=== PATIENT | female | born 1995 | race Hispanic/Latino ===

== ENCOUNTER 2019-09-12 08:06 | Emergency (ER) | payer OTHER, SELFPAY ==
--- NOTE | 2019-09-12 08:48 | EDPHYS ---
Physician Documentation [facility] Name: La Lincoln Age: 24 yrs Sex: Female : 1995 Arrival Date: 09/12/2019 Time: 08:09 Bed 12 Private MD: Unknown, Unknown ED Physician Ayo Navas HPI: 09/12 08:43 This 24 yrs old Female presents to ER via Ambulatory with complaints of Eye jr8 Problem. 08:43 The patient is experiencing pain, redness, tearing. Onset: The symptoms/episode jr8 began/occurred acutely, yesterday. Duration: the symptoms are continuous. Aggravated by blinking, light, Alleviated by nothing. Associated signs and symptoms: Pertinent positives: None. Patient wears glasses, wears soft contacts. Severity of symptoms: At their worst the symptoms were mild in the emergency department the symptoms are unchanged. The patient has experienced similar episodes in the past, a few times. The patient has not recently seen a physician. Denies chemical exposure, trauma, or any other symptoms . 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 - Social history:: Smoking status: Patient/guardian denies using tobacco. - Ebola Screening: : Patient denies exposure to infectious person Patient denies travel to an Ebola-affected area in the 21 days before illness onset. ROS: 08:43 ENT: Negative for injury, pain, and discharge, Neck: Negative for injury, pain, and jr8 swelling, Cardiovascular: Negative for chest pain, palpitations, and edema, Respiratory: Negative for shortness of breath, cough, wheezing, and pleuritic chest pain, Abdomen/GI: Negative for abdominal pain, nausea, vomiting, diarrhea, and constipation, Back: Negative for injury and pain, MS/Extremity: Negative for injury and deformity, Skin: Negative for injury, rash, and discoloration, Neuro: Negative for headache, weakness, numbness, tingling, and seizure. 08:43 Eyes: Positive for pain, redness, tearing, of the right eye and left eye. Exam: 08:43 ENT: Nares patent. No nasal discharge, no septal abnormalities noted. Tympanic jr8 membranes are normal and external auditory canals are clear. Oropharynx with no redness, swelling, or masses, exudates, or evidence of obstruction, uvula midline. Mucous membranes moist. Neck: Trachea midline, no thyromegaly or masses palpated, and no cervical lymphadenopathy. Supple, full range of motion without nuchal rigidity, or vertebral point tenderness. No Meningismus. Chest/axilla: Normal chest wall appearance and motion. Nontender with no deformity. No lesions are appreciated. Cardiovascular: Regular rate and rhythm with a normal S1 and S2. No gallops, murmurs, or rubs. Normal PMI, no JVD. No pulse deficits. Respiratory: Lungs have equal breath sounds bilaterally, clear to auscultation and percussion. No rales, rhonchi or wheezes noted. No increased work of breathing, no retractions or nasal flaring. Abdomen/GI: Soft, non-tender, with normal bowel sounds. No distension or tympany. No guarding or rebound. No evidence of tenderness throughout. Back: No spinal tenderness. No costovertebral tenderness. Full range of motion. Skin: Warm, dry with normal turgor. Normal color with no rashes, no lesions, and no evidence of cellulitis. MS/ Extremity: Pulses equal, no cyanosis. Neurovascular intact. Full, normal range of motion. Neuro: Awake and alert, GCS 15, oriented to person, place, time, and situation. Cranial nerves II-XII grossly intact. Motor strength 5/5 in all extremities. Sensory grossly intact. Cerebellar exam normal. Normal gait. 08:43 Eyes: Periorbital structures: appear normal, Pupils: equal, round, and reactive to light and accomodation, Extraocular movements: intact throughout, Conjunctiva: injected, bilaterally, tearing noted, bilaterally, Corneas: are normal, Sclera: no appreciated abnormality, Anterior chamber: normal, no hyphema, Lids and lashes: appear normal. Vital Signs: 08:24 BP 126 / 82; Pulse 85; Resp 16; Temp 98.1(TE); Pulse Ox 98% on R/A; Weight 90.72 kg; ss Height 5 ft. 3 in. (160.02 cm); Pain 10/10; 08:24 Body Mass Index 35.43 (90.72 kg, 160.02 cm) ss MDM: 08:29 Patient medically screened. jr8 08:43 Data reviewed: vital signs, nurses notes, and as a result, I will discharge patient. jr8 Data interpreted: Pulse oximetry: on room air is 98 %. Interpretation: normal. Counseling: I had a detailed discussion with the patient and/or guardian regarding: the historical points, exam findings, and any diagnostic results supporting the discharge/admit diagnosis, the need for outpatient follow up, an opthalmologist, to return to the emergency department if symptoms worsen or persist or if there are any questions or concerns that arise at home. ED course: Discussed with patient to not wear contacts until both eyes are cleared from infection . Administered Medications: No medications were administered Disposition: 18:16 Co-signature as Attending Physician, Ayo Navas MD Did not see or evaluate patient. ps1 Signing chart for administrative purposes. Not an endorsement of care provided. . Disposition: 09/12/19 08:47 Discharged to Home. Impression: Conjunctivitis. - Condition is Stable. - Discharge Instructions: Bacterial Conjunctivitis, Viral Conjunctivitis. - Prescriptions for Gentamicin 0.3 % Ophthalmic Drops - instill 2 drop by OPHTHALMIC route every 4 hours; 1 bottle. - Medication Reconciliation Form, Thank You Letter, Antibiotic Education, Prescription Opioid Use form. - Follow up: Bebeto Pham MD; When: 2 - 3 days; Reason: Recheck today's complaints, Continuance of care, Re-evaluation by your physician. - Problem is new. - Symptoms have improved. Signatures: Naomi Davis RN RN ss Sanjiv Diaz PA PA jr8 Ayo Navas MD MD ps1 Corrections: (The following items were deleted from the chart) 08:56 08:47 09/12/2019 08:47 Discharged to Home. Impression: Conjunctivitis. Condition is ss Stable. Forms are Medication Reconciliation Form, Thank You Letter, Antibiotic Education, Prescription Opioid Use. Follow up: Bebeto Pham; When: 2 - 3 days; Reason: Recheck today's complaints, Continuance of care, Re-evaluation by your physician. Problem is new. Symptoms have improved. jr8
--- NOTE | 2019-09-12 08:48 | ER ---
Nurse's Notes [facility] Name: La Lincoln Age: 24 yrs Sex: Female : 1995 Arrival Date: 09/12/2019 Time: 08:09 Bed 12 Private MD: Unknown, Unknown Diagnosis: Conjunctivitis Presentation: 09/12 08:25 Presenting complaint: Patient states: bilateral eye redness and burning that began ss yesterday. Woke up this morning worse, with eyes matted. Transition of care: patient was not received from another setting of care. Onset of symptoms was September 11, 2019. Risk Assessment: Do you want to hurt yourself or someone else? Patient reports no desire to harm self or others. Initial Sepsis Screen: Does the patient meet any 2 criteria? No. Patient's initial sepsis screen is negative. Does the patient have a suspected source of infection? No. Patient's initial sepsis screen is negative. Care prior to arrival: None. 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 - Social history:: Smoking status: Patient/guardian denies using tobacco. - Ebola Screening: : Patient denies exposure to infectious person Patient denies travel to an Ebola-affected area in the 21 days before illness onset. Screenin:30 Abuse screen: Denies threats or abuse. Denies injuries from another. Nutritional ss screening: No deficits noted. Tuberculosis screening: Never had TB. Fall Risk None identified. Assessment: 08:30 General: Appears uncomfortable, Behavior is calm, cooperative, Denies fever, feeling ss ill, fatigue, chills. Pain: Complains of pain in left eye and right eye Pain currently is 10 out of 10 on a pain scale. Pain began yesterday evening Is continuous. Neuro: Level of Consciousness is awake, alert, obeys commands, Oriented to person, place, time, situation. Cardiovascular: Capillary refill < 3 seconds is brisk in bilateral fingers. Respiratory: Respiratory effort is even, unlabored, Respiratory pattern is regular, symmetrical. EENT: Sclera/Cornea are reddened in outer aspect of conjuctiva of right eye, inner aspect of conjuctiva of right eye, outer aspect of conjuctiva of left eye and inner aspect of conjunctiva of left eye pt reports itching, burning and photosensitivity. Denies blurry vision . Derm: Skin is intact, is healthy with good turgor, Skin is pink, warm \T\ dry. normal. Musculoskeletal: Circulation, motion, and sensation intact. Range of motion: intact in all extremities, Swelling absent. Vital Signs: 08:24 BP 126 / 82; Pulse 85; Resp 16; Temp 98.1(TE); Pulse Ox 98% on R/A; Weight 90.72 kg; ss Height 5 ft. 3 in. (160.02 cm); Pain 10/10; 08:24 Body Mass Index 35.43 (90.72 kg, 160.02 cm) ED Course: 08:09 Patient arrived in ED. ag5 08:09 Unknown, Unknown is Private Physician. ag5 08:26 Triage completed. ss 08:27 Arm band placed on right wrist. ss 08:29 [facility]. jr8 08:29 Ayo Navas MD is Attending Physician. jr8 08:30 Patient has correct armband on for positive identification. Bed in low position. Call ss light in reach. 08:47 Bebeto Pham MD is Referral Physician. jr8 08:56 Naomi Davis RN is Primary Nurse. 08:56 No provider procedures requiring assistance completed. Patient did not have IV access ss during this emergency room visit. Administered Medications: No medications were administered Outcome: 08:47 Discharge ordered by . jr8 08:56 Discharged to home ambulatory. 08:56 Condition: good 08:56 Discharge instructions given to patient, family, Instructed on discharge instructions, follow up and referral plans. medication usage, Demonstrated understanding of instructions, follow-up care, medications, Prescriptions given X 1. 08:56 Patient left the ED. Signatures: Naomi Davis RN RN Sanjiv Diaz PA PA 8 Lili Dacosta 5
[2019-09-12 09:27] VITALS: BP 126/82; TEMP 98.1; O2SAT 98
== END 2019-09-12 08:56 | disposition home or self-care (01) ==
LOC: ER 08:06
DX: H10.9 Unspecified conjunctivitis (principal); F90.9 Attention-deficit hyperactivity disorder, unspecified type; F41.9 Anxiety disorder, unspecified
CPT/HCPCS: 99282

== ENCOUNTER 2020-06-13 14:33 | Emergency (ER) | payer SELFPAY ==
--- NOTE | 2020-06-13 16:14 | ER ---
Nurse's Notes [facility] Name: La Lincoln Age: 25 yrs Sex: Female : 1995 Arrival Date: 06/13/2020 Time: 14:35 Bed 13 Private MD: Diagnosis: Conjunctivitis-Contacts;Chemosis Presentation: 06/13 14:43 Chief complaint: Patient states: Left eye pain x 4 days, denies discharge, denies jl7 itching. Blister like appearance noted to left sclera. Coronavirus screen: Client denies travel out of the [place] in the last 14 days. At this time, the client does not indicate any symptoms associated with coronavirus-19. Ebola Screen: No symptoms or risks identified at this time. Initial Sepsis Screen: Does the patient meet any 2 criteria? No. Patient's initial sepsis screen is negative. Does the patient have a suspected source of infection? No. Patient's initial sepsis screen is negative. Risk Assessment: Do you want to hurt yourself or someone else? Patient reports no desire to harm self or others. Onset of symptoms was June 09, 2020. Care prior to arrival: None. Transition of care: patient was not received from another setting of care. 14:43 Method Of Arrival: Ambulatory jl7 14:43 Acuity: LETI 3 jl7 Triage Assessment: 14:48 General: Appears in no apparent distress. uncomfortable, Behavior is calm, cooperative, jl7 appropriate for age. Pain: Complains of pain in left eye Pain currently is 8 out of 10 on a pain scale. 14:48 EENT: Eyes are tearing on left eye Sclera/Cornea are reddened in left eye. 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 - Social history:: Smoking status: Reported history of juuling and/or vaping. Screenin:00 Abuse screen: Denies threats or abuse. Denies injuries from another. Nutritional jl7 screening: No deficits noted. Tuberculosis screening: No symptoms or risk factors identified. Fall Risk None identified. Assessment: 16:44 Reassessment: Patient appears in no apparent distress at this time. No changes from jl7 previously documented assessment. Vital Signs: 14:43 BP 115 / 75; Pulse 84; Resp 17; Temp 98.1; Pulse Ox 96% ; Pain 8/10; jl7 ED Course: 14:35 Patient arrived in ED. as 14:48 Triage completed. jl7 14:48 Arm band placed on right wrist. jl7 14:49 Patient placed in waiting room, Patient notified of wait time. jl7 15:27 Sidra Keys FNP-C is [facility]. snw 15:27 Cody العلي MD is Attending Physician. snw 15:59 Laura Conley, RN is Primary Nurse. ca1 16:00 Patient has correct armband on for positive identification. Bed in low position. Call jl7 light in reach. Side rails up X 1. 16:45 No provider procedures requiring assistance completed. Patient did not have IV access jl7 during this emergency room visit. Administered Medications: 16:40 Drug: UltRAM 25 mg Route: PO; jl7 16:46 Follow up: Response: Medication administered at discharge. jl7 Outcome: 16:14 Discharge ordered by . snw 16:45 Discharged to home ambulatory. jl7 16:45 Condition: stable 16:45 Discharge instructions given to patient, Instructed on discharge instructions, follow up and referral plans. medication usage, Demonstrated understanding of instructions, follow-up care, medications, Prescriptions given X 1. 16:46 Patient left the ED. jl7 Signatures: Sidra Keys FNP-C FNP-Viola Hansen Jahala, RN RN jl7 Laura Conley, MONROE RN ca1
--- NOTE | 2020-06-13 16:14 | EDPHYS ---
Physician Documentation [facility] Name: La Lincoln Age: 25 yrs Sex: Female : 1995 Arrival Date: 06/13/2020 Time: 14:35 Bed 13 Private MD: ED Physician Cody العلي HPI: 06/13 16:32 This 25 yrs old Female presents to ER via Ambulatory with complaints of snw Redness of Eye, Drainage From Eye. 16:32 The patient is experiencing redness, tearing, The patient sustained None. to the left snw eye, caused by contact lens. Onset: The symptoms/episode began/occurred suddenly, 2 day(s) ago, and improved then became worse again yesterday, noted "bubble" on eye. Duration: the symptoms are continuous. Aggravated by pressure. Associated signs and symptoms: Pertinent positives:. Severity of symptoms: At their worst the symptoms were moderate in the emergency department the symptoms are unchanged. The patient has not experienced similar symptoms in the past. It is unknown whether or not the patient has recently seen a physician. 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 - Social history:: Smoking status: Reported history of juuling and/or vaping. ROS: 16:30 Constitutional: Negative for fever, chills, and weight loss, ENT: Negative for injury, snw pain, and discharge, Neck: Negative for injury, pain, and swelling, Cardiovascular: Negative for chest pain, palpitations, and edema, Respiratory: Negative for shortness of breath, cough, wheezing, and pleuritic chest pain, Abdomen/GI: Negative for abdominal pain, nausea, vomiting, diarrhea, and constipation, Back: Negative for injury and pain, : Negative for injury, bleeding, discharge, and swelling, MS/Extremity: Negative for injury and deformity, Skin: Negative for injury, rash, and discoloration, Neuro: Negative for headache, weakness, numbness, tingling, and seizure, Psych: Negative for depression, anxiety, suicide ideation, homicidal ideation, and hallucinations. 16:30 Eyes: Positive for pain, swelling, tearing, of the outer aspect of conjuctiva of left eye, wears contact lenses. Exam: 16:29 Constitutional: This is a well developed, well nourished patient who is awake, alert, snw and in no acute distress. Head/Face: Normocephalic, atraumatic. ENT: Nares patent. No nasal discharge, no septal abnormalities noted. Tympanic membranes are normal and external auditory canals are clear. Oropharynx with no redness, swelling, or masses, exudates, or evidence of obstruction, uvula midline. Mucous membranes moist. Neck: Trachea midline, no thyromegaly or masses palpated, and no cervical lymphadenopathy. Supple, full range of motion without nuchal rigidity, or vertebral point tenderness. No Meningismus. Chest/axilla: Normal chest wall appearance and motion. Nontender with no deformity. No lesions are appreciated. Cardiovascular: Regular rate and rhythm with a normal S1 and S2. No gallops, murmurs, or rubs. Normal PMI, no JVD. No pulse deficits. Respiratory: Lungs have equal breath sounds bilaterally, clear to auscultation and percussion. No rales, rhonchi or wheezes noted. No increased work of breathing, no retractions or nasal flaring. Abdomen/GI: Soft, non-tender, with normal bowel sounds. No distension or tympany. No guarding or rebound. No evidence of tenderness throughout. Back: No spinal tenderness. No costovertebral tenderness. Full range of motion. Skin: Warm, dry with normal turgor. Normal color with no rashes, no lesions, and no evidence of cellulitis. MS/ Extremity: Pulses equal, no cyanosis. Neurovascular intact. Full, normal range of motion. Neuro: Awake and alert, GCS 15, oriented to person, place, time, and situation. Cranial nerves II-XII grossly intact. Motor strength 5/5 in all extremities. Sensory grossly intact. Cerebellar exam normal. Normal gait. Psych: Awake, alert, with orientation to person, place and time. Behavior, mood, and affect are within normal limits. 16:29 Eyes: Periorbital structures: swelling, that is mild, on the left lower eyelid, Pupils: no acute changes, Extraocular movements: intact throughout, Conjunctiva: chemosis, that is mild, in left eye, at 3 o'clock, injected, in the left eye, Corneas: are normal, Sclera: no appreciated abnormality, Lids and lashes: appear normal. Vital Signs: 14:43 BP 115 / 75; Pulse 84; Resp 17; Temp 98.1; Pulse Ox 96% ; Pain 8/10; jl7 MDM: 16:06 Patient medically screened. snw 16:31 Data reviewed: vital signs, nurses notes. Data interpreted: Pulse oximetry: on room air snw is 96 %. Interpretation: acceptable. Counseling: I had a detailed discussion with the patient and/or guardian regarding: the historical points, exam findings, and any diagnostic results supporting the discharge/admit diagnosis, the need for outpatient follow up, for definitive care, to return to the emergency department if symptoms worsen or persist or if there are any questions or concerns that arise at home. Special discussion: Based on the history and exam findings, there is no indication for further emergent testing or inpatient evaluation. I discussed with the patient/guardian the need to see the opthamologist for further evaluation of the symptoms. Administered Medications: 16:40 Drug: UltRAM 25 mg Route: PO; jl7 16:46 Follow up: Response: Medication administered at discharge. jl7 Disposition: 16:51 Co-signature as Attending Physician, Cody العلي MD. rn Disposition: 06/13/20 16:14 Discharged to Home. Impression: Conjunctivitis - Contacts, Chemosis. - Condition is Stable. - Discharge Instructions: Bacterial Conjunctivitis, Viral Conjunctivitis, Hand Washing. - Prescriptions for Vigamox 0.5 % Ophthalmic Drops - instill 1 drop by OPHTHALMIC route every 8 hours for 7 days; 5 milliliter. - Medication Reconciliation Form, Thank You Letter, Antibiotic Education, Prescription Opioid Use, Work release form form. - Follow up: Emergency Department; When: As needed; Reason: Worsening of condition. Follow up: Private Physician; When: 1 - 2 days; Reason: Worsening of condition, Recheck today's complaints. Signatures: Sidra Keys, PLASTIC ROLLER-C PLASTIC ROLLER-Csnw Cody العلي MD MD rn Leal, Jahala, RN RN jl7 Corrections: (The following items were deleted from the chart) 16:46 16:14 06/13/2020 16:14 Discharged to Home. Impression: Conjunctivitis - Contacts; jl7 Chemosis. Condition is Stable. Forms are Medication Reconciliation Form, Thank You Letter, Antibiotic Education, Prescription Opioid Use. Follow up: Emergency Department; When: As needed; Reason: Worsening of condition. Follow up: Private Physician; When: 1 - 2 days; Reason: Worsening of condition, Recheck today's complaints. snw
[2020-06-13] MEDS ORDERED: TRAMADOL HCL 50 MG TAB ONE (16:50)
[2020-06-18 12:43] VITALS: BP 115/75; TEMP 98.1; O2SAT 96
== END 2020-06-13 16:46 | disposition home or self-care (01) ==
LOC: ER 14:33
DX: H10.9 Unspecified conjunctivitis (principal); H11.422 Conjunctival edema, left eye; Z87.891 Personal history of nicotine dependence
CPT/HCPCS: 99283

== ENCOUNTER 2021-01-25 13:21 | Emergency (ER) | payer SELFPAY ==
--- OUTSIDE RECORDS SUMMARY | 2021-01-25 13:24 | XMS REPORT | Continuity of Care Document ---
:1995 Author Organization [facility] t Address [address] [place] [address] Dr. Bee [address] [place] [id number] Care Team Providers Name Role Phone Unavailable Unavailable Unavailable Problems This patient has no known problems. Allergies, Adverse Reactions, Alerts This patient has no known allergies or adverse reactions. Medications This patient has no known medications. Procedures This patient has no known procedures. Results This patient has no known results.
--- NOTE | 2021-01-25 14:56 | ER ---
Nurse's Notes [facility] Name: La Lincoln Age: 25 yrs Sex: Female : 1995 Arrival Date: 01/25/2021 Time: 13:24 Bed 12 Private MD: Diagnosis: Rash and other nonspecific skin eruption Presentation: 01/25 13:47 Chief complaint: Patient states: itchy rash to body that started 3 days ago. ss Coronavirus screen: Client denies travel out of the [place] in the last 14 days. Ebola Screen: Patient denies exposure to infectious person. Patient denies travel to an Ebola-affected area in the 21 days before illness onset. Initial Sepsis Screen: Does the patient meet any 2 criteria? No. Patient's initial sepsis screen is negative. Does the patient have a suspected source of infection? No. Patient's initial sepsis screen is negative. Risk Assessment: Do you want to hurt yourself or someone else? Patient reports no desire to harm self or others. Onset of symptoms was January 22, 2021. 13:47 Method Of Arrival: Ambulatory ss 13:47 Acuity: LETI 5 ss Historical: - Allergies: 13:49 No Known Allergies; ss - Home Meds: 13:49 Adderall XR Oral [Active]; ss - PMHx: 13:49 ADD/ADHD; Anxiety; ss - PSHx: 13:49 None; ss - Immunization history:: Adult Immunizations up to date. - Social history:: Smoking status: Patient denies any tobacco usage or history of. Screenin:47 Abuse screen: Denies threats or abuse. Denies injuries from another. Nutritional ss screening: No deficits noted. Tuberculosis screening: Never had TB. Fall Risk None identified. Assessment: 13:47 General: Appears in no apparent distress. comfortable, Behavior is calm, cooperative, ss Denies fever, feeling ill, fatigue, chills. Pain: Denies pain. Neuro: Level of Consciousness is awake, alert, obeys commands, Oriented to person, place, time, situation. Cardiovascular: Capillary refill < 3 seconds is brisk in bilateral fingers. Respiratory: Airway is patent Respiratory effort is even, unlabored, Respiratory pattern is regular, symmetrical. EENT: Oral mucosa is moist. Derm: Skin is intact, is healthy with good turgor, Skin is dry, Skin is pink, warm \T\ dry. normal. Derm: Derm: Rash noted that is on right leg and left leg small red areas noted to bilateral legs. Not whelps. Musculoskeletal: Circulation, motion, and sensation intact. Range of motion: intact in all extremities, Swelling absent. 15:00 Reassessment: Patient appears in no apparent distress at this time. Patient and/or ss family updated on plan of care and expected duration. Pain level reassessed. Patient denies pain at this time. Patient states feeling better. Patient states symptoms have improved. Respiratory: Respiratory effort is even, unlabored, Respiratory pattern is regular, symmetrical. Derm: Skin is pink, warm \T\ dry. normal, rash seems to have improved. less splotches noted to bilateral legs. Areas seem to be less irritated, are pink. Vital Signs: 13:49 BP 114 / 76; Pulse 100; Resp 14; Temp 98.0; Pulse Ox 99% on R/A; Weight 88.45 kg; ss Height 5 ft. 2 in. (157.48 cm); Pain 0/10; 13:49 Body Mass Index 35.67 (88.45 kg, 157.48 cm) ED Course: 13:24 Patient arrived in ED. ds1 13:47 Patient has correct armband on for positive identification. Bed in low position. Call ss light in reach. 13:49 Triage completed. ss 13:49 Arm band placed on right wrist. ss 14:47 [facility]phanie [facility]C [facility] kb 14:47 Ankur Bella MD is Attending Physician. kb 15:07 Naomi Davis RN is Primary Nurse. ss 15:08 No provider procedures requiring assistance completed. Patient did not have IV access ss during this emergency room visit. Administered Medications: 15:07 Drug: predniSONE 40 mg Route: PO; ss 15:07 Follow up: Response: Medication administered at discharge. ss 15:07 Drug: Pepcid (famotidine) 20 mg Route: PO; ss 15:08 Follow up: Response: Medication administered at discharge. Outcome: 14:56 Discharge ordered by . kb 15:08 Discharged to home ambulatory. ss 15:08 Condition: good 15:08 Discharge instructions given to patient, Instructed on discharge instructions, follow up and referral plans. medication usage, Demonstrated understanding of instructions, follow-up care, medications, Prescriptions given X 2. 15:09 Patient left the ED. ss Signatures: Estephanie Clarke, MYRNAC RN LPN CNA-Janine Steward ds1 Naomi Davis, RN RN ss
--- NOTE | 2021-01-25 14:56 | EDPHYS ---
Physician Documentation [facility] Name: La Lincoln Age: 25 yrs Sex: Female : 1995 Arrival Date: 01/25/2021 Time: 13:24 Bed 12 Private MD: ED Physician Ankur Bella HPI: 01/25 15:06 This 25 yrs old Female presents to ER via Ambulatory with complaints of Rash. kb 15:06 The patient's rash thought to be caused by an unknown cause. The rash is located on the kb right arm, left arm, right leg and left leg. The rash can be described as papular. Onset: The symptoms/episode began/occurred 3 day(s) ago. Associated signs and symptoms: Pertinent positives: itching. Severity of symptoms: At their worst the symptoms were moderate in the emergency department the symptoms are unchanged. Treatment given at home: OTC lotion/cream. The patient has not experienced similar symptoms in the past. The patient has not recently seen a physician. Historical: - Allergies: 13:49 No Known Allergies; ss - Home Meds: 13:49 Adderall XR Oral [Active]; ss - PMHx: 13:49 ADD/ADHD; Anxiety; ss - PSHx: 13:49 None; ss - Immunization history:: Adult Immunizations up to date. - Social history:: Smoking status: Patient denies any tobacco usage or history of. ROS: 15:03 Constitutional: Negative for fever, chills, and weight loss, Respiratory: Negative for kb shortness of breath, cough, wheezing, and pleuritic chest pain, MS/Extremity: Negative for injury and deformity, Neuro: Negative for headache, weakness, numbness, tingling, and seizure. 15:03 Skin: Positive for rash, of the right arm, left arm, right leg and left leg. Exam: 15:05 Constitutional: This is a well developed, well nourished patient who is awake, alert, kb and in no acute distress. Head/Face: Normocephalic, atraumatic. MS/ Extremity: Pulses equal, no cyanosis. Neurovascular intact. Full, normal range of motion. Neuro: Awake and alert, GCS 15, oriented to person, place, time, and situation. Moves all extremities. Normal gait. 15:05 Skin: rash can be described as papular, on the right arm, left arm, right leg and left leg. Vital Signs: 13:49 BP 114 / 76; Pulse 100; Resp 14; Temp 98.0; Pulse Ox 99% on R/A; Weight 88.45 kg; ss Height 5 ft. 2 in. (157.48 cm); Pain 0/10; 13:49 Body Mass Index 35.67 (88.45 kg, 157.48 cm) MDM: 14:48 Patient medically screened. kb 15:03 Data reviewed: vital signs, nurses notes. Data interpreted: Pulse oximetry: on room air kb is 99 %. Interpretation: normal. Counseling: I had a detailed discussion with the patient and/or guardian regarding: the historical points, exam findings, and any diagnostic results supporting the discharge/admit diagnosis, the need for outpatient follow up, a family practitioner, to return to the emergency department if symptoms worsen or persist or if there are any questions or concerns that arise at home. Administered Medications: 15:07 Drug: predniSONE 40 mg Route: PO; 15:07 Follow up: Response: Medication administered at discharge. ss 15:07 Drug: Pepcid (famotidine) 20 mg Route: PO; ss 15:08 Follow up: Response: Medication administered at discharge. Disposition: 01/26 07:31 Co-signature as Attending Physician, Ankur Bella MD I agree with the assessment and markie plan of care. Disposition: 01/25/21 14:56 Discharged to Home. Impression: Rash and other nonspecific skin eruption. - Condition is Stable. - Discharge Instructions: Rash, [id number]. - Prescriptions for Pepcid 20 mg Oral Tablet - take 1 tablet by ORAL route every 12 hours for 5 days; 10 tablet. Prednisone 20 mg Oral Tablet - take 1 tablet by ORAL route once daily for 5 days; 5 tablet. - Medication Reconciliation Form, Thank You Letter, Antibiotic Education, Prescription Opioid Use form. - Follow up: Emergency Department; When: As needed; Reason: Worsening of condition. Follow up: Private Physician; When: 2 - 3 days; Reason: Recheck today's complaints, Continuance of care, Re-evaluation by your physician. Signatures: Estephanie Clarke, JAYCEE GARZA-Ckb Shayne, Ankur, MD MD markie Smirch, Naomi, RN RN ss Corrections: (The following items were deleted from the chart) 01/25 15:09 14:56 01/25/2021 14:56 Discharged to Home. Impression: Rash and other nonspecific skin ss eruption. Condition is Stable. Forms are Medication Reconciliation Form, Thank You Letter, Antibiotic Education, Prescription Opioid Use. Follow up: Emergency Department; When: As needed; Reason: Worsening of condition. Follow up: Private Physician; When: 2 - 3 days; Reason: Recheck today's complaints, Continuance of care, Re-evaluation by your physician. kb
[2021-01-25] MEDS ORDERED: FAMOTIDINE 20 MG TAB ONE (15:22)
[2021-01-25] MEDS ORDERED: predniSONE 20 MG TAB ONE (15:23)
[2021-01-25 17:02] VITALS: BP 114/76; TEMP 98; O2SAT 99
== END 2021-01-25 15:09 | disposition home or self-care (01) ==
LOC: ER 13:21
DX: R21 Rash and other nonspecific skin eruption (principal); F90.9 Attention-deficit hyperactivity disorder, unspecified type
CPT/HCPCS: 99283; J7512

== ENCOUNTER 2021-03-26 12:40 | Emergency (ER) | payer SELFPAY ==
--- OUTSIDE RECORDS SUMMARY | 2021-03-26 12:45 | XMS REPORT | Continuity of Care Document ---
:1995 Author Organization [facility] t Address [address] [place] [address] Care Team Providers Name Role Phone Di Cates Attending Clinician Problems This patient has no known problems. Allergies, Adverse Reactions, Alerts This patient has no known allergies or adverse reactions. Medications This patient has no known medications. Procedures This patient has no known procedures. 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
[2021-03-26 13:27] LABS: Urine Blood 2+ (Negative); Urine Glucose Negative (Negative); Urine Protein Negative (Negative)
[2021-03-26 13:56] LABS: Urine Bacteria 20-50 /HPF (<20); Urine RBC <5 /HPF (NONE SEEN)
[2021-03-26 13:57] LABS: Urine Mucus LIGHT /HPF (NONE SEEN)
--- NOTE | 2021-03-26 14:46 | EDPHYS ---
Physician Documentation [facility] Name: La Lincoln Age: 25 yrs Sex: Female : 1995 Arrival Date: 03/26/2021 Time: 12:46 Bed 17 Private MD: out of town, doctor ED Physician Cody العلي HPI: 03/26 13:17 This 25 yrs old Female presents to ER via Ambulatory with complaints of kb Weakness, DEHYDRATION. 13:17 The patient or guardian reports flu symptoms, arthralgias, myalgias. Onset: The kb symptoms/episode began/occurred 3 day(s) ago. Severity of symptoms: At their worst the symptoms were mild, in the emergency department the symptoms are unchanged. Modifying factors: The symptoms are alleviated by nothing, the symptoms are aggravated by nothing. Associated signs and symptoms: The patient has no apparent associated signs or symptoms. The patient has not experienced similar symptoms in the past. The patient has not recently seen a physician. Pt reports bodyaches, fatigue and malaise for 3 days. Denies fever or any other symptoms. States she wanted to see if she was dehydrated or possibly had covid. 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 - Social history:: Smoking status: Patient denies any tobacco usage or history of. ROS: 13:14 Respiratory: Negative for shortness of breath, cough, wheezing, and pleuritic chest kb pain, Abdomen/GI: Negative for abdominal pain, nausea, vomiting, diarrhea, and constipation. 13:14 Constitutional: Positive for body aches, fatigue, malaise. 13:14 All other systems are negative. Exam: 13:14 Constitutional: This is a well developed, well nourished patient who is awake, alert, kb and in no acute distress. Head/Face: Normocephalic, atraumatic. ENT: Moist Mucous membranes Cardiovascular: Regular rate and rhythm with a normal S1 and S2. No gallops, murmurs, or rubs. No pulse deficits. Respiratory: Respirations even and unlabored. No increased work of breathing, no retractions or nasal flaring. Abdomen/GI: Soft, non-tender. No distention Skin: Warm, dry with normal turgor. Normal color. MS/ Extremity: Pulses equal, no cyanosis. Neurovascular intact. Full, normal range of motion. Neuro: Awake and alert, GCS 15, oriented to person, place, time, and situation. Moves all extremities. Normal gait. Psych: Awake, alert, with orientation to person, place and time. Behavior, mood, and affect are within normal limits. Vital Signs: 13:00 BP 116 / 73; Pulse 93; Resp 18; Temp 98.2; Pulse Ox 99% on R/A; Weight 89.81 kg; Height ph 5 ft. 2 in. (157.48 cm); 14:53 BP 120 / 82; Pulse 74; Resp 17 S; Pulse Ox 99% on R/A; jd3 13:00 Body Mass Index 36.21 (89.81 kg, 157.48 cm) ph MDM: 13:03 Patient medically screened. kb 13:17 Data reviewed: vital signs, nurses notes. Data interpreted: Pulse oximetry: on room air kb is 99 %. Interpretation: normal. 14:45 Counseling: I had a detailed discussion with the patient and/or guardian regarding: the kb historical points, exam findings, and any diagnostic results supporting the discharge/admit diagnosis, lab results, the need for outpatient follow up, a family practitioner, to return to the emergency department if symptoms worsen or persist or if there are any questions or concerns that arise at home. 03/26 13:08 Order name: [place] Screen Profile; Complete Time: 13:59 kb 03/26 13:27 Order name: Urine Dipstick-Ancillary; Complete Time: 13:40 EDMS 03/26 13:33 Order name: Urine --Ancillary (enter results); Complete Time: 13:46 bd 03/26 13:40 Order name: Urine Microscopic Only; Complete Time: 13:59 kb 03/26 14:41 Order name: SARS-COV-2 RT PCR; Complete Time: 14:43 EDMS 03/26 13:08 Order name: Urine Dipstick-Ancillary (obtain specimen); Complete Time: 13:28 kb Administered Medications: No medications were administered Disposition: 17:31 Co-signature as Attending Physician, Cody العلي MD. rn Disposition: 03/26/21 14:46 Discharged to Home. Impression: Malaise and fatigue. - Condition is Stable. - Discharge Instructions: Fatigue. - Medication Reconciliation Form, Thank You Letter, Antibiotic Education, Prescription Opioid Use form. - Follow up: Emergency Department; When: As needed; Reason: Worsening of condition. Follow up: Private Physician; When: 2 - 3 days; Reason: Recheck today's complaints, Continuance of care, Re-evaluation by your physician. Signatures: Dispatcher [employer] EDND Estephanie Clarke, CLASSIFIED AD CLERK-C CLASSIFIED AD CLERK-Ckb Cody العلي MD MD rn Hall, Patricia, RN RN Primo Patterson RN RN jd3 Corrections: (The following items were deleted from the chart) 13:49 13:08 CORONAVIRUS+MR.LAB.BRZ ordered. [facility] 14:53 14:46 03/26/2021 14:46 Discharged to Home. Impression: Malaise and fatigue. Condition jd3 is Stable. Forms are Medication Reconciliation Form, Thank You Letter, Antibiotic Education, Prescription Opioid Use. Follow up: Emergency Department; When: As needed; Reason: Worsening of condition. Follow up: Private Physician; When: 2 - 3 days; Reason: Recheck today's complaints, Continuance of care, Re-evaluation by your physician. kb
--- NOTE | 2021-03-26 14:46 | ER ---
Nurse's Notes [facility] Name: La Lincoln Age: 25 yrs Sex: Female : 1995 Arrival Date: 03/26/2021 Time: 12:46 Bed 17 Private MD: out of town, doctor Diagnosis: Malaise and fatigue Presentation: 03/26 13:00 Chief complaint: Patient states: Fatigue and body aches since Thursday, denies fever, ph cough, N/V/D. Coronavirus screen: fatigue, muscle pain, Client presents with at least one sign or symptom that may indicate coronavirus-19. Standard/surgical mask placed on the client. Ebola Screen: No symptoms or risks identified at this time. Initial Sepsis Screen: Does the patient meet any 2 criteria? No. Patient's initial sepsis screen is negative. Does the patient have a suspected source of infection? No. Patient's initial sepsis screen is negative. Risk Assessment: Do you want to hurt yourself or someone else? Patient reports no desire to harm self or others. Onset of symptoms was March 26, 2021. 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 - Social history:: Smoking status: Patient denies any tobacco usage or history of. Screenin:20 Abuse screen: Denies threats or abuse. Nutritional screening: No deficits noted. jd3 Tuberculosis screening: No symptoms or risk factors identified. Fall Risk Ambulatory Aid- None/Bed Rest/Nurse Assist (0 pts). Gait- Normal/Bed Rest/Wheelchair (0 pts) Mental Status- Oriented to own ability (0 pts). Total Uribe Fall Scale indicates No Risk (0-24 pts). Assessment: 13:10 General: Appears in no apparent distress. comfortable, Behavior is calm, cooperative, jd3 appropriate for age, Reports feeling ill for 1-2 days, fatigue for 1-2 days. Pain: Denies pain. Neuro: Level of Consciousness is awake, alert, obeys commands, Oriented to person, place, time, situation. Cardiovascular: Denies chest pain, Capillary refill < 3 seconds Patient's skin is warm and dry. Respiratory: Airway is patent Respiratory effort is even, unlabored, Respiratory pattern is regular, symmetrical, Denies shortness of breath. GI: No signs and/or symptoms were reported involving the gastrointestinal system. Reports tolerance of fluids. : No signs and/or symptoms were reported regarding the genitourinary system. EENT: No signs and/or symptoms were reported regarding the EENT system. Derm: Skin is intact, Skin is dry, Skin is normal, Skin temperature is warm. Musculoskeletal: Circulation, motion, and sensation intact. Range of motion: intact in all extremities. 14:18 Reassessment: Patient appears in no apparent distress at this time. No changes from jd3 previously documented assessment. Patient and/or family updated on plan of care and expected duration. Pain level reassessed. Patient is alert, oriented x 3, equal unlabored respirations, skin warm/dry/pink. 14:52 Reassessment: Patient appears in no apparent distress at this time. Patient and/or jd3 family updated on plan of care and expected duration. Pain level reassessed. Patient is alert, oriented x 3, equal unlabored respirations, skin warm/dry/pink. Vital Signs: 13:00 BP 116 / 73; Pulse 93; Resp 18; Temp 98.2; Pulse Ox 99% on R/A; Weight 89.81 kg; Height ph 5 ft. 2 in. (157.48 cm); 14:53 BP 120 / 82; Pulse 74; Resp 17 S; Pulse Ox 99% on R/A; jd3 13:00 Body Mass Index 36.21 (89.81 kg, 157.48 cm) ph ED Course: 12:46 Patient arrived in ED. hh 12:46 out of town, doctor is Private Physician. hh 13:00 Estephanie Clarke FNP-C is PHCP. kb 13:00 Cody العلي MD is Attending Physician. kb 13:02 Triage completed. ph 13:03 Arm band placed on Patient placed in an exam room. ph 13:09 Primo Youngblood RN is Primary Nurse. jd3 13:21 [place] Screen Profile Sent. jd3 13:21 Initial lab(s) drawn, by me, sent to lab. COVID swab sent to lab. jd3 14:20 Patient has correct armband on for positive identification. Bed in low position. Call jcarlene light in reach. Side rails up X 1. Pulse ox on. NIBP on. 14:53 No provider procedures requiring assistance completed. Patient did not have IV access j during this emergency room visit. Administered Medications: No medications were administered Outcome: 14:46 Discharge ordered by . rico 14:53 Discharged to home ambulatory, with family. jd3 14:53 Condition: stable 14:53 Discharge instructions given to patient, Instructed on discharge instructions, follow up and referral plans. Demonstrated understanding of instructions, follow-up care. 14:53 Patient left the ED. jd3 Signatures: Estephanie Clarke, PIPELINE DISPATCH OPERATOR-C PIPELINE DISPATCH OPERATOR-Bhavani Marques RN RN Primo Patterson RN RN Christa Bee
[2021-03-26 15:39] VITALS: TEMP 98.2; O2SAT 99
[2021-03-26 15:40] VITALS: BP 120/82
== END 2021-03-26 14:53 | disposition home or self-care (01) ==
LOC: ER 12:40
DX: R53.81 Other malaise (principal); R53.83 Other fatigue; Z20.822 Contact with and (suspected) exposure to COVID-19; F90.9 Attention-deficit hyperactivity disorder, unspecified type
CPT/HCPCS: 36415; 81003; 81015; 81025; 86308; 99283; U0003

== ENCOUNTER 2021-05-09 22:11 | Emergency (ER) | payer SELFPAY ==
--- OUTSIDE RECORDS SUMMARY | 2021-05-09 22:13 | XMS REPORT | Continuity of Care Document ---
:1995 Author Organization [facility] t Address 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
[2021-05-09 23:55] LABS: Basophils % 0.6 % (0-1.3); Hematocrit 29.1 % (36.0-45.0); Lymphocytes % 24.9 % (15.3-44.8); RBC Red Blood Cell Count 3.53 M/uL (3.86-4.86)
[2021-05-10 00:07] LABS: BUN Blood Urea Nitrogen 12 mg/dL (7-18); Bicarbonate 25 mmol/L (21-32); Glucose Level 87 mg/dL (74-106); Potassium 3.4 mmol/L (3.5-5.1); Sodium Level 140 mmol/L (136-145)
--- NOTE | 2021-05-10 02:18 | EDPHYS ---
Physician Documentation [facility] Name: La Lincoln Age: 25 yrs Sex: Female : 1995 Arrival Date: 05/09/2021 Time: 22:37 Bed 6 Private MD: ED Physician Estevan Doan HPI: 05/09 23:33 This 25 yrs old Female presents to ER via Ambulatory with complaints of Feet pkl Swelling. 23:33 The patient presents with swelling. The complaints affect the both feet. Onset: The pkl symptoms/episode began/occurred left foot started swelling 1 week ago and right foot started swelling today. 05/10 02:12 Associated signs and symptoms: The patient has no apparent associated signs or symptoms.pkl Historical: - Allergies: 05/09 23:00 No Known Allergies; bs2 - Home Meds: 23:00 None [Active]; bs2 - PMHx: 23:00 ADD/ADHD; bs2 - PSHx: 23:00 None; bs2 - Immunization history:: Client reports having NOT received the Covid vaccine. Flu vaccine is not up to date. It has been more than one year since last vaccine. - Social history:: Smoking status: Patient denies any tobacco usage or history of. ROS: 05/10 02:12 Eyes: Negative for injury, pain, redness, and discharge, ENT: Negative for injury, pkl pain, and discharge, Neck: Negative for injury, pain, and swelling, Cardiovascular: Negative for chest pain, palpitations, and edema, Respiratory: Negative for shortness of breath, cough, wheezing, and pleuritic chest pain, Abdomen/GI: Negative for abdominal pain, nausea, vomiting, diarrhea, and constipation, Back: Negative for injury and pain, : Negative for injury, bleeding, discharge, and swelling. MS/extremity: Positive for swelling, of the both feet. Skin: Negative for rash. Neuro: Negative for altered mental status, loss of consciousness. Exam: 02:12 Head/Face: Normocephalic, atraumatic. Eyes: Pupils equal round and reactive to light, pkl extra-ocular motions intact. Lids and lashes normal. Conjunctiva and sclera are non-icteric and not injected. Cornea within normal limits. Periorbital areas with no swelling, redness, or edema. ENT: Nares patent. No nasal discharge, no septal abnormalities noted. Tympanic membranes are normal and external auditory canals are clear. Oropharynx with no redness, swelling, or masses, exudates, or evidence of obstruction, uvula midline. Mucous membranes moist. Neck: Trachea midline, no thyromegaly or masses palpated, and no cervical lymphadenopathy. Supple, full range of motion without nuchal rigidity, or vertebral point tenderness. No Meningismus. Chest/axilla: Normal chest wall appearance and motion. Nontender with no deformity. No lesions are appreciated. Cardiovascular: Regular rate and rhythm with a normal S1 and S2. No gallops, murmurs, or rubs. Normal PMI, no JVD. No pulse deficits. Respiratory: Lungs have equal breath sounds bilaterally, clear to auscultation and percussion. No rales, rhonchi or wheezes noted. No increased work of breathing, no retractions or nasal flaring. Abdomen/GI: Soft, non-tender, with normal bowel sounds. No distension or tympany. No guarding or rebound. No evidence of tenderness throughout. Back: No spinal tenderness. No costovertebral tenderness. Full range of motion. Skin: Warm, dry with normal turgor. Normal color with no rashes, no lesions, and no evidence of cellulitis. Neuro: Awake and alert, GCS 15, oriented to person, place, time, and situation. Cranial nerves II-XII grossly intact. Motor strength 5/5 in all extremities. Sensory grossly intact. Cerebellar exam normal. Normal gait. 02:12 Musculoskeletal/extremity: Extremities: grossly normal except: noted in the both feet: swelling. Vital Signs: 05/09 22:57 BP 109 / 78 RA Sitting (auto/lg); Pulse 84 MON; Resp 20 S; Temp 98.6(TE); Pulse Ox 100% bs2 ; Weight 86.18 kg (R); Height 5 ft. 3 in. (160.02 cm); Pain 07/28; 05/10 01:43 BP 101 / 69; Pulse 84; Resp 19; Pulse Ox 99% on R/A; ea 02:29 BP 112 / 68; Pulse 75; Resp 16; Pulse Ox 99% on R/A; em 05/09 22:57 Body Mass Index 33.66 (86.18 kg, 160.02 cm) bs2 MDM: 05/09 23:25 Patient medically screened. pkl 05/10 02:12 Data reviewed: vital signs, nurses notes. ED course: Discussed lab results with pkl patient. Advised to follow up with PCP in 2 to 3 days for further evaluations. Patient understood instructions. 05/09 23:32 Order name: CBC with Diff; Complete Time: 02:09 pkl 05/09 23:32 Order name: Chem 7; Complete Time: 02:09 pkl 05/09 23:32 Order name: Sed Rate; Complete Time: 02:09 pkl 05/09 23:32 Order name: CRP; Complete Time: 02:09 pkl 05/09 23:32 Order name: D-Dimer; Complete Time: 02:09 pkl Administered Medications: 02:24 Drug: K-Dur (potassium chloride) 40 mEq Route: PO; em 02:29 Follow up: Response: Medication administered at discharge. em Disposition Summary: 05/10/21 02:17 Discharge Ordered Location: Home pkl Problem: new pkl Symptoms: are unchanged pkl Condition: Stable pkl Diagnosis - Swelling both feet pkl Followup: pkl - With: Private Physician - When: 2 - 3 days - Reason: Re-evaluation by your physician Discharge Instructions: - Discharge Summary Sheet pkl Forms: - Medication Reconciliation Form pkl - Thank You Letter pkl - Antibiotic Education pkl - Prescription Opioid Use pkl Prescriptions: - Lasix 40 mg Oral Tablet - take 1 tablet by ORAL route once daily for 7 days; 7 tablet; Refills: 0, pkl Product Selection Permitted - Potassium Chloride 10 mEq Oral capsule, extended release - take 1 tablet by ORAL route every 12 hours for 7 days; 14 tablet; Refills: 0, pkl Product Selection Permitted Signatures: Dispatcher [employer] Estevan Espinosa MD MD pkl Kody Cabrera RN RN Felicia Ron RN RN bs2 Corrections: (The following items were deleted from the chart) 05/09 23:01 23:00 Home Meds: Adderall XR Oral; bs2 bs2 23: 23:00 PMHx: ADD/ADHD; bs2 bs2 23: 23:00 PMHx: Anxiety; bs2 bs2
--- NOTE | 2021-05-10 02:18 | ER ---
Nurse's Notes [facility] Name: La Lincoln Age: 25 yrs Sex: Female : 1995 Arrival Date: 05/09/2021 Time: 22:37 Bed 6 Private MD: Diagnosis: Swelling both feet Presentation: 05/09 22:57 Chief complaint: Patient states: bi-lateral feet swelling Left one for one week, Right bs2 foot started swelling today. Coronavirus screen: At this time, the client does not indicate any symptoms associated with coronavirus-19. Ebola Screen: No symptoms or risks identified at this time. Initial Sepsis Screen: Does the patient meet any 2 criteria? No. Patient's initial sepsis screen is negative. Does the patient have a suspected source of infection? No. Patient's initial sepsis screen is negative. Risk Assessment: Do you want to hurt yourself or someone else? Patient reports no desire to harm self or others. Onset of symptoms was May 02, 2021. 22:57 Method Of Arrival: Ambulatory bs2 22:57 Acuity: LETI 4 bs2 Triage Assessment: 23:00 General: Appears in no apparent distress. distressed, comfortable. bs2 23:00 General: Behavior is calm, cooperative, appropriate for age. Pain: Complains of pain in bs2 left lateral ankle, left Achilles, left medial ankle and anterior aspect of left ankle Pain. 23:02 Pain: Complains of pain in right ankle, right Achilles and anterior aspect of right bs2 ankle. Historical: - Allergies: 23:00 No Known Allergies; bs2 - Home Meds: 23:00 None [Active]; bs2 - PMHx: 23:00 ADD/ADHD; bs2 - PSHx: 23:00 None; bs2 - Immunization history:: Client reports having NOT received the Covid vaccine. Flu vaccine is not up to date. It has been more than one year since last vaccine. - Social history:: Smoking status: Patient denies any tobacco usage or history of. Screenin:35 Abuse screen: Denies threats or abuse. Nutritional screening: No deficits noted. em Tuberculosis screening: No symptoms or risk factors identified. Fall Risk None identified. Assessment: 23:40 General: Appears in no apparent distress. comfortable, Behavior is calm, cooperative, em appropriate for age, Denies fever. Pain: Complains of pain in right leg and left leg Pain began 1 week ago. Neuro: Level of Consciousness is awake, alert, obeys commands, Oriented to person, place, time, situation, Appropriate for age. Cardiovascular: Capillary refill < 3 seconds Patient's skin is warm and dry. Edema is 1+ to left ankle, left foot, left toes, right ankle, right foot and right toes Chest pain is denied. Respiratory: Airway is patent Respiratory effort is even, unlabored, Respiratory pattern is regular, symmetrical, Denies shortness of breath. Derm: Skin is intact, is healthy with good turgor, Skin is pink, warm \T\ dry. Musculoskeletal: Capillary refill < 3 seconds, Range of motion: intact in all extremities. 05/10 01:43 Reassessment: Patient and/or family updated on plan of care and expected duration. Pain ea level reassessed. Patient is alert, oriented x 3, equal unlabored respirations, skin warm/dry/pink. 02:29 Reassessment: Patient appears in no apparent distress at this time. Patient and/or em family updated on plan of care and expected duration. Pain level reassessed. Patient is alert, oriented x 3, equal unlabored respirations, skin warm/dry/pink. Vital Signs: 05/09 22:57 BP 109 / 78 RA Sitting (auto/lg); Pulse 84 MON; Resp 20 S; Temp 98.6(TE); Pulse Ox 100% bs2 ; Weight 86.18 kg (R); Height 5 ft. 3 in. (160.02 cm); Pain 10/10; 05/10 01:43 BP 101 / 69; Pulse 84; Resp 19; Pulse Ox 99% on R/A; ea 02:29 BP 112 / 68; Pulse 75; Resp 16; Pulse Ox 99% on R/A; em 05/09 22:57 Body Mass Index 33.66 (86.18 kg, 160.02 cm) bs2 ED Course: 05/09 22:37 Patient arrived in ED. cf2 22:59 Triage completed. bs2 23:02 Arm band placed on right wrist. bs2 23:04 Kody Cabrera, [place] is Primary Nurse. em 23:25 Estevan Doan MD is Attending Physician. pkl 23:35 Patient has correct armband on for positive identification. em 23:45 Initial lab(s) drawn, by me, sent to lab. Inserted saline lock: 22 gauge in right em antecubital area, using aseptic technique. Blood collected. 05/10 02:28 No provider procedures requiring assistance completed. IV discontinued, intact, em bleeding controlled, No redness/swelling at site. Pressure dressing applied. Administered Medications: 02:24 Drug: K-Dur (potassium chloride) 40 mEq Route: PO; em 02:29 Follow up: Response: Medication administered at discharge. em Outcome: 02:17 Discharge ordered by . pkl 02:28 Discharged to home ambulatory, with family. em 02: Condition: good 02:28 Discharge instructions given to patient, family, Instructed on discharge instructions, follow up and referral plans. medication usage, Demonstrated understanding of instructions, follow-up care, medications, Prescriptions given X 2. 02:29 Patient left the ED. em Signatures: Estevan Doan MD MD pkKody Horner, RN RN Hannah Araujo RN Sonam Robles ea 2 Felicia Persaud RN RN bs2 Corrections: (The following items were deleted from the chart) 05/09 23: 23:00 Home Meds: Adderall XR Oral; bs2 bs2 23: 23:00 PMHx: ADD/ADHD; bs2 bs2 : 23:00 PMHx: Anxiety; bs2 bs2
[2021-05-10] MEDS ORDERED: POTASSIUM CL SA 10 MEQ TAB PO ONE (02:41)
[2021-05-10 04:14] VITALS: TEMP 98.6
[2021-05-10 04:17] VITALS: O2SAT 99
[2021-05-10 04:19] VITALS: BP 112/68
== END 2021-05-10 02:29 | disposition home or self-care (01) ==
LOC: ER 22:11
DX: R22.43 Localized swelling, mass and lump, lower limb, bilateral (principal)
CPT/HCPCS: 36415; 80048; 85025; 85379; 85652; 86140; 99284

== ENCOUNTER 2021-06-14 12:20 | Emergency (ER) | payer SELFPAY ==
--- OUTSIDE RECORDS SUMMARY | 2021-06-14 12:22 | XMS REPORT | Continuity of Care Document ---
:1995 Author Organization [facility] t Address [address] [place] [address] Care Team Providers Name Role Phone Di [...] Clinicians Facility Department ID 2021-03-19 2021-03-19 [facility] [id number] 00:00:00 00:00:00 Sima Sevilla COMPUTER SCIENTIST [id number] [facility] [id number] MATERNAL [id number] & CHILD [address] [facility] 2021-03-19 2021-03-19 Telephone [facility] [id number] 00:00:00 00:00:00 Sima Sevilla COMPUTER SCIENTIST [id number] [facility] [id number] MATERNAL [id number] & CHILD 107 [facility] Results This patient has no known results.
--- NOTE | 2021-06-14 15:10 | ER ---
Nurse's Notes [facility] Name: La Lincoln Age: 26 yrs Sex: Female : 1995 Arrival Date: 06/14/2021 Time: 12:23 Bed 15 Private MD: Diagnosis: Viral infection, unspecified Presentation: 06/14 12:37 Chief complaint: Patient states: SLOAN, cough and SOB that began 1 week ago. Requesting ss COVID test. Coronavirus screen: Client presents with at least one sign or symptom that may indicate coronavirus-19. Standard/surgical mask placed on the client. Provider contacted for isolation considerations. Ebola Screen: Patient denies exposure to infectious person. Patient denies travel to an Ebola-affected area in the 21 days before illness onset. Initial Sepsis Screen: Does the patient meet any 2 criteria? No. Patient's initial sepsis screen is negative. Does the patient have a suspected source of infection? No. Patient's initial sepsis screen is negative. Risk Assessment: Do you want to hurt yourself or someone else? Patient reports no desire to harm self or others. Onset of symptoms was June 08, 2021. 12:37 Method Of Arrival: Ambulatory ss 12:37 Acuity: LETI 4 ss Triage Assessment: 16:41 Pain: Also complains of. zb Historical: - Allergies: 12:38 No Known Allergies; ss - Home Meds: 12:38 None [Active]; ss - PMHx: 12:38 ADD/ADHD; ss - PSHx: 12:38 None; ss - Immunization history:: Client reports having NOT received the Covid vaccine. - Social history:: Smoking status: Patient denies any tobacco usage or history of. Screenin:41 Abuse screen: Denies threats or abuse. Nutritional screening: No deficits noted. aj2 Tuberculosis screening: No symptoms or risk factors identified. Fall Risk None identified. Assessment: 12:41 General: Appears in no apparent distress. comfortable, well groomed, well nourished, aj2 Behavior is calm, cooperative, appropriate for age. Pain:. Neuro: No deficits noted. 16:38 Reassessment: Patient appears in no apparent distress at this time. Patient and/or zb family updated on plan of care and expected duration. Pain level reassessed. Patient is alert, oriented x 3, equal unlabored respirations, skin warm/dry/pink. c/o of cough. patient wanted to wait until results came back. notified ECP and patient that results were positive. . ecp discussed additional care with patient. Vital Signs: 12:37 BP 119 / 70; Pulse 93; Resp 15; Temp 98.0(TE); Pulse Ox 99% on R/A; Weight 89.81 kg; Height 5 ft. 3 in. (160.02 cm); Pain 8/10; 12:37 Body Mass Index 35.07 (89.81 kg, 160.02 cm) ED Course: 12:23 Patient arrived in ED. mr 12:38 Triage completed. 12:38 Arm band placed on right wrist. 12:40 Reinier Sweeney is Primary Nurse. aj2 12:41 Sanjiv Diaz PA is PHCP. [facility] 12:41 Kenya Ivy MD is Attending Physician. jr8 12:41 Patient has correct armband on for positive identification. Bed in low position. Call aj2 light in reach. 12:41 No provider procedures requiring assistance completed. Patient did not have IV access aj2 during this emergency room visit. Administered Medications: No medications were administered Outcome: 15:09 Discharge ordered by . jr8 16:39 Discharged to home ambulatory, with family. zb 16:39 Condition: stable 16:39 Discharge instructions given to patient, Instructed on discharge instructions, follow up and referral plans. medication usage, Demonstrated understanding of instructions, follow-up care, medications, Prescriptions given X 1. 16:42 Patient left the ED. zb Signatures: Margoth Diaz Shelby, RN [place] Sanjiv Diaz PA PA jr8 Chanelle Zambrano RN RN zb Jenkins, Angelea aj2
--- NOTE | 2021-06-14 15:10 | EDPHYS ---
Physician Documentation [facility] Name: La Lincoln Age: 26 yrs Sex: Female : 1995 Arrival Date: 06/14/2021 Time: 12:23 Bed 15 Private MD: ED Physician Kenya Ivy HPI: 06/14 13:13 This 26 yrs old Female presents to ER via Ambulatory with complaints of jr8 Headache, Cough, Shortness Of Breath. 13:13 The patient complains of pain to the forehead. Onset: The symptoms/episode jr8 began/occurred gradually, 1 week(s) ago. Associated signs and symptoms: Pertinent positives: cough, congestion, shortness of breath . The patient has not experienced similar symptoms in the past. The patient has not recently seen a physician. Patient stated that his boyfriend's mother was recently diagnosed with Covid. Has been around her along with her boyfriend which her boyfriend now is complaining of headaches as well.. Historical: - Allergies: 12:38 No Known Allergies; ss - Home Meds: 12:38 None [Active]; ss - PMHx: 12:38 ADD/ADHD; ss - PSHx: 12:38 None; ss - Immunization history:: Client reports having NOT received the Covid vaccine. - Social history:: Smoking status: Patient denies any tobacco usage or history of. ROS: 13:13 Eyes: Negative for injury, pain, redness, and discharge, Cardiovascular: Negative for jr8 chest pain, palpitations, and edema, Abdomen/GI: Negative for abdominal pain, nausea, vomiting, diarrhea, and constipation, Back: Negative for injury and pain, MS/Extremity: Negative for injury and deformity, Skin: Negative for injury, rash, and discoloration. 13:13 Neck: Negative for injury, pain, and swelling. 13:13 ENT: Positive for sinus congestion. 13:13 Respiratory: Positive for cough, shortness of breath. 13:13 Neuro: Positive for headache. Exam: 13:13 Constitutional: This is a well developed, well nourished patient who is awake, alert, jr8 and in no acute distress. Eyes: Pupils equal round and reactive to light, extra-ocular motions intact. Lids and lashes normal. Conjunctiva and sclera are non-icteric and not injected. Cornea within normal limits. Periorbital areas with no swelling, redness, or edema. ENT: Nares patent. No nasal discharge, no septal abnormalities noted. Tympanic membranes are normal and external auditory canals are clear. Oropharynx with no redness, swelling, or masses, exudates, or evidence of obstruction, uvula midline. Mucous membranes moist. Neck: Trachea midline, no thyromegaly or masses palpated, and no cervical lymphadenopathy. Supple, full range of motion without nuchal rigidity, or vertebral point tenderness. No Meningismus. Cardiovascular: Regular rate and rhythm with a normal S1 and S2. No gallops, murmurs, or rubs. Normal PMI, no JVD. No pulse deficits. Respiratory: Lungs have equal breath sounds bilaterally, clear to auscultation and percussion. No rales, rhonchi or wheezes noted. No increased work of breathing, no retractions or nasal flaring. Abdomen/GI: Soft, non-tender, with normal bowel sounds. No distension or tympany. No guarding or rebound. No evidence of tenderness throughout. Skin: Warm, dry with normal turgor. Normal color with no rashes, no lesions, and no evidence of cellulitis. MS/ Extremity: Pulses equal, no cyanosis. Neurovascular intact. Full, normal range of motion. Neuro: Awake and alert, GCS 15, oriented to person, place, time, and situation. Cranial nerves II-XII grossly intact. Motor strength 5/5 in all extremities. Sensory grossly intact. Vital Signs: 12:37 BP 119 / 70; Pulse 93; Resp 15; Temp 98.0(TE); Pulse Ox 99% on R/A; Weight 89.81 kg; ss Height 5 ft. 3 in. (160.02 cm); Pain 8/10; 12:37 Body Mass Index 35.07 (89.81 kg, 160.02 cm) ss MDM: 12:41 Patient medically screened. [facility] 15:08 Data reviewed: vital signs, nurses notes, lab test result(s), and as a result, I will jr8 discharge patient. Data interpreted: Pulse oximetry: on room air is 99 %. Interpretation: normal. Counseling: I had a detailed discussion with the patient and/or guardian regarding: the historical points, exam findings, and any diagnostic results supporting the discharge/admit diagnosis, lab results, the need for outpatient follow up, a family practitioner, to return to the emergency department if symptoms worsen or persist or if there are any questions or concerns that arise at home. 06/14 12:41 Order name: COVID-19 : Document "Date of Symptom Onset" if Symptomatic. jr8 06/14 16:20 Order name: SARS-COV-2 RT PCR; Complete Time: 16:32 EDMS Administered Medications: No medications were administered Disposition Summary: 06/14/21 15:09 Discharge Ordered Location: Home jr8 Problem: new jr8 Symptoms: have improved jr8 Condition: Stable jr8 Diagnosis - Viral infection, unspecified jr8 Followup: jr8 - With: Private Physician - When: 5 - 6 days - Reason: Recheck today's complaints, Continuance of care, Re-evaluation by your physician Discharge Instructions: - Discharge Summary Sheet jr8 - Viral Respiratory Infection jr8 Forms: - Medication Reconciliation Form jr8 - Thank You Letter jr8 - Work release form jr8 - Antibiotic Education jr8 - Prescription Opioid Use jr8 Prescriptions: - promethazine-DM 6.25-15 mg/5 mL Oral syrup - take 5 milliliter by ORAL route every 4-6 hours as needed, not to exceed 30 mL jr8 in 24 hours; 120 milliliter; Refills: 0, Product Selection Permitted Addendum: 06/17/2021 20:33 Co-signature as Attending Physician, Kenya gonsalez a2 Signatures: Dispatcher [employer] EDMS Naomi Davis RN RN ss Roszak, Josh, PA PA jr8 Kenya Ivy MD MD ma2 Corrections: (The following items were deleted from the chart) 06/14 15:24 12:42 CORONAVIRUS ordered. EDVA EDMS
[2021-06-14 16:47] VITALS: BP 119/70; TEMP 98; O2SAT 99
== END 2021-06-14 16:42 | disposition home or self-care (01) ==
LOC: ER 12:20
DX: U07.1 COVID-19 (principal); B34.9 Viral infection, unspecified
CPT/HCPCS: 99282; U0003

== ENCOUNTER 2021-10-23 16:22 | Emergency (ER) | payer SELFPAY ==
--- OUTSIDE RECORDS SUMMARY | 2021-10-23 16:25 | XMS REPORT | Continuity of Care Document ---
:1995 Author Organization [facility] t Address [address] [place] [address] Care Team Providers Name Role Phone Di Cates Attending Clinician Di YOON Attending Clinician Unavailable Polly SAN Attending Clinician Unavailable Payers Payer Name Policy Type Policy Number Effective Date Expiration Date Kyle diggs [id number] 2017 00:00:00 [employer] II [id number] 2018 00:00:00 Problems This patient has no known problems. Allergies, Adverse Reactions, Alerts Allergy Allergy Status Severity Reaction(s) Onset Inactive Treating Comm ents Source Name Type Date Date Clinician NO KNOWN Drug Active [facility] ALLERGIE Class ity of [facility] Medications This patient has no known medications. Procedures This patient has no known procedures. Encounters Start End Encounter Admission Attending Care Care Encounter Source Date/Time Date/Time Type Type Clinicians Facility Department ID 2021-03-19 2021-03-19 Telephone JOSE Yoon [id number] 00:00:00 00:00:00 Nick Sevilla [employer] COMBAT[employer] CREWMAN [id number] [facility] [id number] MATERNAL [id number] & CHILD [address] [place] [address] 2021-03-19 2021-03-19 Telephone JOSE Yoon [id number] 00:00:00 00:00:00 Nick Sevilla [employer] [id number] [facility] [id number] MATERNAL [id number] & CHILD [address] [place] [address] 2021-03-07 2021-03-07 Outpatient R CAR, [facility] [id number] Univers 14:00:00 14:00:00 NICK [id number] [facility] 2021-03-07 2021-03-07 Outpatient R CAR, [facility] [id number] Univers 14:00:00 14:00:00 NICK [facility] 2021-02-28 2021-02-28 Outpatient R CAR, [facility] [id number] Univers 09:30:00 09:30:00 NICK [id number] [facility] 2021-02-28 2021-02-28 Outpatient R CAR, [facility] [id number] Univers 09:00:00 09:00:00 NICK [facility] 2020-09-25 2020-09-25 Outpatient R JASWINDER [facility] [id number] Univers 12:45:00 12:45:00 ANANTH [facility] 2020-09-20 2020-09-20 Outpatient R JASWINDER [facility] [id number] Univers 14:15:00 14:15:00 ANANTH [facility] 2020-09-20 2020-09-20 Outpatient R JASWINDER [facility] [id number] Univers 14:15:00 14:15:00 ROSHUNDA [facility] 2019-12-16 2019-12-16 Outpatient JASWINDER [facility] [id number] Univers 10:15:00 10:15:00 ANANTH [id number] [facility] Results This patient has no known results.
[2021-10-23] MEDS ORDERED: TETRACAINE HCL 0.5% 4ML OPTH ONE (17:29)
[2021-10-23] MEDS ORDERED: FLUORESCEIN SODIUM 1 MG/WRAP ONE (17:30)
--- NOTE | 2021-10-23 17:57 | ER ---
Nurse's Notes [facility] Name: La Lincoln Age: 26 yrs Sex: Female : 1995 Arrival Date: 10/23/2021 Time: 16:25 Bed 9 Private MD: Diagnosis: Ocular pain, right eye Presentation: 10/23 17:06 Chief complaint: Patient states: My right eye has been hurting since , it was ld1 red but now the redness is gone. It is now swollen. Coronavirus screen: At this time, the client does not indicate any symptoms associated with coronavirus-19. Ebola Screen: No symptoms or risks identified at this time. Mechanism of Injury: No Mechanism of Injury. The patient denies any loss of vision. Initial Sepsis Screen: Does the patient meet any 2 criteria? No. Patient's initial sepsis screen is negative. Does the patient have a suspected source of infection? No. Patient's initial sepsis screen is negative. Risk Assessment: Do you want to hurt yourself or someone else? Patient reports no desire to harm self or others. Onset of symptoms was October 23, 2021. 17:06 Method Of Arrival: Ambulatory ld1 17:06 Acuity: LETI 4 ld1 Triage Assessment: 17:07 General: Appears in no apparent distress. comfortable, Behavior is calm, cooperative, ld1 appropriate for age. Pain: Denies pain. EENT: Eyes Red and swollen to right eye. Reports blurred vision in iris of right eye. Respiratory: Airway is patent Respiratory effort is even, unlabored. 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 - Social history:: Smoking status: Patient denies any tobacco usage or history of. Patient/guardian denies using alcohol. Screenin:32 Abuse screen: Denies threats or abuse. Denies injuries from another. Nutritional stallings screening: No deficits noted. Tuberculosis screening: No symptoms or risk factors identified. Fall Risk None identified. Assessment: 17:31 General: Appears in no apparent distress. Behavior is calm, cooperative. Pain: stallings Complains of pain in right eye. EENT: Eyes Sclera/Cornea are reddened in outer aspect of conjuctiva of right eye and inner aspect of conjuctiva of right eye. Vital Signs: 17:06 BP 111 / 78; Pulse 87; Resp 18; Temp 97.8(O); Pulse Ox 99% on R/A; Weight 86.18 kg; ld1 Height 5 ft. 3 in. (160.02 cm); Pain 0/10; 17:06 Body Mass Index 33.66 (86.18 kg, 160.02 cm) ld1 Visual Acuity: 18:16 Left Eye Visual acuity 20/25, Pupil size 3 mm, Normal, React To Light; Right Eye Visual stallings acuity 20/30, Pupil size 3 mm, Normal, React To Light; With Lenses; ED Course: 16:25 Patient arrived in ED. ds1 17:07 Triage completed. ld1 17:07 Arm band placed on right wrist. ld1 17:22 Estephanie Clarke FNP-C is [facility]. kb 17:22 Cody العلي MD is Attending Physician. kb 17:32 Patient has correct armband on for positive identification. stallings 17:32 No provider procedures requiring assistance completed. stallings 18:17 Patient did not have IV access during this emergency room visit. stallings Administered Medications: 18:14 Drug: Tetracaine Drops 0.5 % 1 drops Route: Ophthalmic; Site: right eye; stallings Outcome: 17:56 Discharge ordered by . kb 18:17 Discharged to home stallings 18:17 Condition: good 18:17 Discharge instructions given to patient, Prescriptions given X 1. 18:17 Patient left the ED. stallings Signatures: Estephanie Clarke FNP-C FNP-Janine Steward ds1 Lynnette iVnes, RN RN ld1 Noy Marquez RN RN stallings
--- NOTE | 2021-10-23 17:57 | EDPHYS ---
Physician Documentation [facility] Name: aL Lincoln Age: 26 yrs Sex: Female : 1995 Arrival Date: 10/23/2021 Time: 16:25 Bed 9 Private MD: ED Physician Cody العلي HPI: 10/23 17:29 This 26 yrs old Female presents to ER via Ambulatory with complaints of Eye kb Pain. 17:29 The patient is experiencing pain, redness, The patient sustained None. to the right kb eye, caused by an unknown mechanism. Onset: The symptoms/episode began/occurred 7 day(s) ago. Duration: the symptoms are continuous. Aggravated by nothing. Alleviated by nothing. Associated signs and symptoms: Pertinent positives: None. Pertinent negatives: None. Patient wears glasses. Severity of symptoms: At their worst the symptoms were mild in the emergency department the symptoms are unchanged. The patient has experienced similar episodes in the past, a few times. The patient has not recently seen a physician. Pain and redness to right eye for 7 days. States she gets pink eye often. . 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 - Social history:: Smoking status: Patient denies any tobacco usage or history of. Patient/guardian denies using alcohol. ROS: 17:27 Constitutional: Negative for fever, chills, and weight loss. kb 17:27 Eyes: Positive for pain, redness. 17:27 All other systems are negative. Exam: 17:27 Constitutional: This is a well developed, well nourished patient who is awake, alert, kb and in no acute distress. Head/Face: Normocephalic, atraumatic. Respiratory: Respirations even and unlabored. No increased work of breathing. Talking in full sentences Skin: Warm, dry with normal turgor. Normal color. MS/ Extremity: Pulses equal, no cyanosis. Neurovascular intact. Full, normal range of motion. Neuro: Awake and alert, GCS 15, oriented to person, place, time, and situation. Moves all extremities. Normal gait. Psych: Awake, alert, with orientation to person, place and time. Behavior, mood, and affect are within normal limits. 17:27 Eyes: Periorbital structures: appear normal, Pupils: equal, round, and reactive to light and accomodation, Extraocular movements: intact throughout, Conjunctiva: injected, in the right eye. Vital Signs: 17:06 BP 111 / 78; Pulse 87; Resp 18; Temp 97.8(O); Pulse Ox 99% on R/A; Weight 86.18 kg; ld1 Height 5 ft. 3 in. (160.02 cm); Pain 0/10; 17:06 Body Mass Index 33.66 (86.18 kg, 160.02 cm) ld1 Visual Acuity: 18:16 Left Eye Visual acuity 20/25, Pupil size 3 mm, Normal, React To Light; Right Eye Visual stallings acuity 20/30, Pupil size 3 mm, Normal, React To Light; With Lenses; MDM: 17:22 Patient medically screened. kb 17:27 Data reviewed: vital signs, nurses notes. Data interpreted: Pulse oximetry: on room air kb is 99 %. Interpretation: normal. 17:56 Counseling: I had a detailed discussion with the patient and/or guardian regarding: the kb historical points, exam findings, and any diagnostic results supporting the discharge/admit diagnosis, the need for outpatient follow up, an opthalmologist, to return to the emergency department if symptoms worsen or persist or if there are any questions or concerns that arise at home. 18:20 ED course: Pressure checked bilateral eyes with tonopen, pressures 20-25 bilaterally. rn Symptoms only in right eye.. 10/23 17:26 Order name: Eye Tray; Complete Time: 18:15 kb 10/23 17:26 Order name: Fluoresene Opth strip; Complete Time: 18:15 kb 10/23 17:26 Order name: Visual Acuity; Complete Time: 18:15 kb Administered Medications: 18:14 Drug: Tetracaine Drops 0.5 % 1 drops Route: Ophthalmic; Site: right eye; stallings Disposition: 18:20 Co-signature as Attending Physician, Cody العلي MD I agree with the assessment and rn plan of care. Attestation: The patient's history, exam findings, diagnostics, and a summary of any interventions or procedures was reviewed in detail with Estephanie CHAMPION. Disposition Summary: 10/23/21 17:56 Discharge Ordered Location: Home kb Condition: Stable kb Diagnosis - Ocular pain, right eye kb Followup: kb - With: Emergency Department - When: As needed - Reason: Worsening of condition Followup: kb - With: Private Physician - When: 2 - 3 days - Reason: Recheck today's complaints, Continuance of care, Re-evaluation by your physician Discharge Instructions: - Discharge Summary Sheet kb - How to Use Eye Drops and Eye Ointments kb Forms: - Medication Reconciliation Form kb - Thank You Letter kb - Antibiotic Education kb - Prescription Opioid Use kb Prescriptions: - Erythromycin 5 mg/gram (0.5 %) Ophthalmic Ointment - apply 1 centimeter by OPHTHALMIC route 2-3 times daily for 7 days; 1 tube; kb Refills: 0, Product Selection Permitted Signatures: Estephanie Clarke, Cody Jay MD MD rn Dibbern, Lauren, RN RN ld1 Noy Marquez RN RN stallings Corrections: (The following items were deleted from the chart) 17:56 17:29 Patient does not utilize any form of vision correction kb kb
[2021-10-23 18:24] VITALS: BP 111/78; TEMP 97.8; O2SAT 99
== END 2021-10-23 18:17 | disposition home or self-care (01) ==
LOC: ER 16:22
DX: H57.11 Ocular pain, right eye (principal)
CPT/HCPCS: 99283